=== PATIENT | female | born 1995 | race Two or more races ===

== ENCOUNTER 2017-07-29 09:12 | Emergency (ER) | payer OTHER ==
[~2017-07-29] VITALS: Ht 157.5 cm; Wt 58.1 kg
[~2017-07-29 09:12] MED LIST: FERR134T2 PO; PREN-124 PO
--- NOTE | 2017-07-29 09:25 | NUR ---
PATIENT PRESENT TO ER C/O SHARP, STABBING ABDOMINAL PAIN, LEFT/RIGHT LOWER QUADRANTS. PATIENT IS A/OX 4. BREATHING EVEN AND UNLABORED. NO SOB. DENIES . VITALS STABLE. SAFETY AND COMFORT MEASURES IN PLACE. AWAITING MD ORDERS.
--- NOTE | 2017-07-29 09:30 | NUR ---
URINE OBTAINED AND SENT TO LAB.
[2017-07-29] MEDS ORDERED: KETOROLAC TROMETHAMINE INJ 30 MG/ML VIAL ONE (09:34)
--- NOTE | 2017-07-29 09:43 | NUR ---
NEW IV STARTED ON LAC, 20 G. BLOOD DRAWN AND SENT TO LAB. US TECH AT BEDSIDE.
[2017-07-29 09:46] LABS: BASOPHILS # (AUTO) 0.1 /CMM (0.0-0.2); BASOPHILS % (AUTO) 0.6 % (0.0-2.0); EOSINOPHILS # (AUTO) 0.1 /CMM (0.0-0.7); EOSINOPHILS % (AUTO) 1.1 % (0.0-6.0); HEMATOCRIT 43 % (33-45); LYMPHOCYTES # (AUTO) 1.8 /CMM (0.8-4.8); LYMPHOCYTES % (AUTO) 14.5 % (20.0-44.0); MEAN CORPUSCULAR HEMOGLOBIN 29 PG (26.0-33.0); MEAN CORPUSCULAR HGB CONC 33 g/dl (31.0-36.0); MEAN CORPUSCULAR VOLUME 89 fL (82-100); MONOCYTES # (AUTO) 0.6 /CMM (0.1-1.30); MONOCYTES % (AUTO) 4.6 % (2.0-12.0); NEUTROPHILS # (AUTO) 9.5 /CMM (1.8-8.9); NEUTROPHILS % (AUTO) 79.2 % (43.0-81.0); PLATELET COUNT (AUTO) 290 /CMM (150-450); RDW COEFFICIENT OF VARIATION 12.1 (11.5-15.0); RED BLOOD CELL COUNT(AUTO) 4.78 MIL/uL (4.0-5.2); WHITE BLOOD COUNT (AUTO) 12.1 K/uL (4.3-11.0)
[2017-07-29 09:48] LABS: APPEARANCE,URINE Clear (CLEAR); BILIRUBIN,URINE Negative (NEGATIVE); BLOOD, URINE Moderate Ery/uL (NEGATIVE); COLOR,URINE Yellow (YELLOW); KETONES,URINE Negative (NEGATIVE); LEUKOCYTE ESTERASE ,URINE Trace (NEGATIVE); NITRITE, URINE Negative (NEGATIVE); PROTEIN,URINE Negative (NEGATIVE); UGLUCOSE Negative (NEGATIVE); UROBILINOGEN,URINE 0.2 EU/dL (0.2)
[2017-07-29 09:54] LABS: BACTERIA,URINE Few /HPF (None Seen); SQUAMOUS EPITHELIAL CELL,UR Moderate /HPF (None Seen); WBC,URINE 0-3 /HPF (0-3)
[2017-07-29 09:56] LABS: CALCIUM, SERUM 8.5 mg/dL (8.5-10.1); CREATININE 0.6 mg/dL (0.6-1.3); POTASSIUM 3.9 mmol/L (3.5-5.1)
[2017-07-29] MEDS ORDERED: IV NS 0.9% 1,000 ML BAG IV ONE (10:00)
[2017-07-29] MEDS ORDERED: KETOROLAC TROMETHAMINE INJ 30 MG/ML VIAL IV ONE (10:00)
[2017-07-29 10:01] LABS: ALBUMIN 3.7 g/dL (3.4-5.0); BILIRUBIN,DIRECT 0.2 mg/dL (0.0-0.2); BILIRUBIN,TOTAL 0.9 mg/dL (0.2-1.0); TOTAL PROTEIN, SERUM 6.8 g/dL (6.4-8.2)
[2017-07-29] MEDS ORDERED: AZITHROMYCIN 250 MG TABLET PO ONE (10:30)
[2017-07-29] MEDS ORDERED: METRONIDAZOLE 500 MG TABLET PO ONE (10:30)
[2017-07-29] MEDS ORDERED: CEFTRIAXONE 500 MG VIAL IM ONE (10:30)
[2017-07-29] MEDS ORDERED: CEFTRIAXONE 500 MG VIAL ONE (10:33)
[2017-07-29] MEDS ORDERED: LIDOCAINE /MPF 1% VIAL 5 ML VIAL ONE (10:33)
[2017-07-29] MEDS ORDERED: METRONIDAZOLE 500 MG TABLET ONE (10:34)
[2017-07-29] MEDS ORDERED: AZITHROMYCIN 250 MG TABLET ONE (10:34)
[2017-07-29 11:13] VITALS: BP 121/76
--- NOTE | 2017-07-29 11:16 | NUR ---
IV removed. Catheter intact and site benign. Pressure and 4x4 applied to site. No bleeding noted. Patient discharged to home in stable condition. Written and verbal after care instructions given. Patient verbalizes understanding of instruction.
== END 2017-07-29 11:15 | disposition home or self-care (01) ==
LOC: ER 09:13
DX: R10.2 Pelvic and perineal pain (principal); N89.8 Other specified noninflammatory disorders of vagina
CPT/HCPCS: 36415; 76856; 80048; 80076; 81001; 83690; 84703; 85025; 96361; 96372; 96374; 99285; A4606; J0696; J1885; J3490; J7030; Z7610; 81000-TC

== ENCOUNTER 2017-12-18 23:03 | Emergency (ER) | payer OTHER ==
[~2017-12-18] VITALS: Ht 157.5 cm; Wt 56.7 kg
--- NOTE | 2017-12-19 00:07 | NUR ---
ATTEMPTED TO CONTACT PT, NO ANSWER, LWBS
--- NOTE | 2017-12-19 00:48 | NUR ---
PT AMBULATORY TO ER BED 9. PT BIB SELF C/O ABD PAIN X 1 DAY. 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 VSS/RESP EVEN UNLABORED/NAD NOTED/SKIN WARM AND DRY/DENIES N-V-D/ AFEBRILE/AOX4. AWAITING MD LEVINE.
--- NOTE | 2017-12-19 00:50 | NUR ---
URINE SPECIMEN OBTAINED AND SENT TO THE LAB.
[2017-12-19 01:19] LABS: APPEARANCE,URINE SL CLOUDY (CLEAR); BILIRUBIN,URINE NEGATIVE (NEGATIVE); BLOOD, URINE NEGATIVE Ery/uL (NEGATIVE); COLOR,URINE YELLOW (YELLOW); KETONES,URINE TRACE (NEGATIVE); LEUKOCYTE ESTERASE ,URINE NEGATIVE (NEGATIVE); NITRITE, URINE NEGATIVE (NEGATIVE); PROTEIN,URINE NEGATIVE (NEGATIVE); UGLUCOSE NEGATIVE (NEGATIVE); UROBILINOGEN,URINE 0.2 EU/dL (0.2)
[2017-12-19 01:25] LABS: BACTERIA,URINE Few /HPF (None Seen); RBC,URINE 0-2 /HPF (0-2); SQUAMOUS EPITHELIAL CELL,UR Moderate /HPF (None Seen); WBC,URINE 0-2 /HPF (0-3)
--- NOTE | 2017-12-19 01:36 | NUR ---
XRAY AT BEDSIDE.
--- NOTE | 2017-12-19 02:52 | NUR ---
Patient discharged to home in stable condition. Written and verbal after care instructions given. Patient verbalizes understanding of instruction. Patient ambulatory with a steady gait.
[2017-12-19 02:53] VITALS: BP 104/61
== END 2017-12-19 02:53 | disposition home or self-care (01) ==
LOC: ER 23:07
DX: R10.9 Unspecified abdominal pain (principal); F17.200 Nicotine dependence, unspecified, uncomplicated
CPT/HCPCS: 74018; 81001; 84703; 99285; A4606; Z7610; 81000-TC

== ENCOUNTER 2018-11-23 22:22 | Emergency (ER) | payer OTHER ==
[~2018-11-23] VITALS: Ht 157.5 cm; Wt 62.6 kg
--- NOTE | 2018-11-23 22:50 | NUR ---
PT BIBSELF C/O MIGRAINE X3 DAYS. MULTIPLE EPISODES OF VOMITTING. AOX4. RESP EVEN AND UNLABORED. PT IS ON MONITOR IN BED 9. WILL CONTINUE TO MONITOR.
--- NOTE | 2018-11-23 22:55 | NUR ---
URINE COLLECTED AND SENT TO LAB
--- NOTE | 2018-11-23 23:25 | NUR ---
BLOOD DRAWN AND GIVEN TO LAB
[2018-11-23] MEDS ORDERED: METOCLOPRAMIDE HCL 10 MG/2 ML VIAL IV ONE (23:30)
[2018-11-23] MEDS ORDERED: IV NS 0.9% 1,000 ML BAG IV ONE (23:30)
[2018-11-23] MEDS ORDERED: diphenhydrAMINE HCL 50 MG/ML VIAL IV ONE (23:30)
[2018-11-23] MEDS ORDERED: KETOROLAC TROMETHAMINE INJ 30 MG/ML VIAL IV ONE (23:30)
[2018-11-23] MEDS ORDERED: DEXAMETHASONE SOD PHOSPHATE 10 MG/ML VIAL IV ONE (23:30)
[2018-11-23] MEDS ORDERED: DEXAMETHASONE SOD PHOSPHATE 10 MG/ML VIAL ONE (23:53)
[2018-11-23] MEDS ORDERED: KETOROLAC TROMETHAMINE INJ 30 MG/ML VIAL ONE (23:53)
[2018-11-23] MEDS ORDERED: METOCLOPRAMIDE HCL 10 MG/2 ML VIAL ONE (23:53)
[2018-11-23] MEDS ORDERED: diphenhydrAMINE HCL ELIX 25 MG/10 ML UDC ONE (23:53)
[2018-11-23] MEDS ORDERED: diphenhydrAMINE HCL 50 MG/ML VIAL ONE (23:55)
[2018-11-24 01:04] VITALS: BP 95/61
--- NOTE | 2018-11-24 01:22 | NUR ---
IV removed. Catheter intact and site benign. Pressure and 4x4 applied to site. No bleeding noted.Patient discharged to home in stable condition. Written and verbal after care instructions given. Patient verbalizes understanding of instruction. PT AMBULATORY WITH STEADY GAIT.
== END 2018-11-24 01:23 | disposition home or self-care (01) ==
LOC: ER 22:26
DX: G43.909 Migraine, unspecified, not intractable, without status migrainosus (principal); R10.30 Lower abdominal pain, unspecified; F12.10 Cannabis abuse, uncomplicated; R11.10 Vomiting, unspecified; Z90.49 Acquired absence of other specified parts of digestive tract; Z60.2 Problems related to living alone
CPT/HCPCS: 84703-TC; J1100; J1200; J1885; J2765; J7030; Q0163

== ENCOUNTER 2020-06-12 13:23 | Emergency (ER) | payer OTHER ==
[~2020-06-12] VITALS: Ht 157.5 cm; Wt 63.5 kg
[2020-06-12] MEDS ORDERED: LORAZEPAM 1 MG TABLET ONE (14:37)
[2020-06-12] MEDS ORDERED: LORAZEPAM 1 MG TABLET PO ONE (15:00)
[2020-06-12 15:25] VITALS: BP 112/65
--- NOTE | 2020-06-12 15:48 | NUR ---
Patient discharged to home in stable condition. Written and verbal after care instructions given. Patient verbalizes understanding of instruction.Verbalized she feels better
== END 2020-06-12 15:49 | disposition home or self-care (01) ==
LOC: ER 13:23
DX: O99.341 Other mental disorders complicating pregnancy, first trimester (principal); F41.9 Anxiety disorder, unspecified; Z90.49 Acquired absence of other specified parts of digestive tract; Z60.2 Problems related to living alone; Z3A.12 12 weeks gestation of pregnancy

== ENCOUNTER 2022-03-18 19:42 | Emergency (ER) | payer OTHER ==
[~2022-03-18] VITALS: Ht 157.5 cm; Wt 70.3 kg
--- NOTE | 2022-03-18 22:05 | NUR ---
[place]. WORSENING LOWER BACK PAIN RADIATING TO THE R KNEE X MARCH 02. PATIENT ALERT AND ORIENTED X3. AMBULATORY WITH NON LABORED BREATHING. IN BED 10 AWAITING MD LVEINE.
[2022-03-18] MEDS ORDERED: CYCLOBENZAPRINE 10 MG TABLET ONE (22:28)
[2022-03-18] MEDS ORDERED: KETOROLAC TROMETHAMINE INJ 30 MG/ML VIAL ONE (22:28)
[2022-03-18] MEDS ORDERED: CYCLOBENZAPRINE 10 MG TABLET PO ONE (22:30)
[2022-03-18] MEDS ORDERED: KETOROLAC TROMETHAMINE INJ 60 MG/2 ML VIAL IM ONE (22:30)
--- NOTE | 2022-03-18 22:37 | NUR ---
PREG WAIVER SIGNED
--- NOTE | 2022-03-18 22:37 | NUR ---
URINE COLLECTED AND SENT TO LAB
[2022-03-18] MEDS ORDERED: IBUP-1957 PO ×2 (23:49→23:55)
[2022-03-19 00:08] VITALS: BP 112/60
--- NOTE | 2022-03-19 00:08 | NUR ---
Patient discharged to home in stable condition. Written and verbal after care instructions given. Patient verbalizes understanding of instruction.
== END 2022-03-19 00:09 | disposition home or self-care (01) ==
LOC: ER 19:56
DX: M54.50 Low back pain, unspecified (principal); M25.561 Pain in right knee; F17.200 Nicotine dependence, unspecified, uncomplicated; Z90.49 Acquired absence of other specified parts of digestive tract; Z79.899 Other long term (current) drug therapy
CPT/HCPCS: 72100; 73564; 84703; 96372; 99284; J1885